=== PATIENT | female | born 1965 | race Caucasian/White ===

== ENCOUNTER → 2016-07-22 | Outpatient (CLI) | payer OTHER | END | disposition home or self-care (01) | LOC: RAD 10:00 | DX: R10.84 Generalized abdominal pain (principal); R63.5 Abnormal weight gain | CPT/HCPCS: 76705 ==

== ENCOUNTER → 2016-07-28 | Outpatient (CLI) | payer OTHER | END | disposition home or self-care (01) | LOC: NUC 07-23 11:30 | DX: R10.84 Generalized abdominal pain (principal); R63.5 Abnormal weight gain | CPT/HCPCS: 78227; A9537; J2805 ==

== ENCOUNTER → 2016-10-04 | Outpatient (CLI) | payer OTHER | END | disposition home or self-care (01) | LOC: RAD 10-01 14:00 | DX: R10.84 Generalized abdominal pain (principal); K76.0 Fatty (change of) liver, not elsewhere classified | CPT/HCPCS: 74177 ==